=== PATIENT | male | born 1980 | race Caucasian/White ===

== ENCOUNTER 2017-01-28 14:40 | Inpatient (IN) | payer SELFPAY ==
[~2017-01-28] VITALS: Ht 177.8 cm; Wt 124.4 kg
[~2017-01-28 14:40] MED LIST: NAPROXEN500 MG PO
[2017-01-28 15:19] LABS: MCH 29.1 PG (29.0-34.0); MCHC 33.1 G/DL (30.0-36.0); MCV 88.1 FL (86-99); MEAN PLAT.VOLUME 9.9 uM^3 (9.0-12.4); PLATELET COUNT 319 K/uL (156-360); RBC DIS.WIDTH-CV 12.7 % (11.8-14.6); RBC DIS.WIDTH-SD 41.1 % (39-53); RED BLOOD COUNT 5.56 M/uL (4.00-5.50); WHITE BLOOD COUNT 17.3 K/uL (4.1-10.2)
[2017-01-28 15:30] LABS: CHLORIDE 93 mEq/L (99-109); POTASSIUM 4.1 mEq/L (3.7-5.4); SODIUM 134 mEq/L (136-147)
[2017-01-28 15:31] LABS: AMYLASE 31 IU/L (1-118)
[2017-01-28 15:33] LABS: GLUCOSE 362 mg/dL (70-99)
[2017-01-28 15:34] LABS: ANION GAP 15 MEQ/L (2-14)
[2017-01-28 15:35] LABS: TOTAL BILIRUBIN 0.6 mg/dL (0.0-1.0)
[2017-01-28 15:36] LABS: ALKALINE PHOSPHATASE 142 IU/L (3-129); GFR ESTIMATE (CALCULATED) > 59 mL/min/
[2017-01-28 15:38] LABS: DIRECT BILIRUBIN 0.3 mg/dL (0.0-0.3); UREA NITROGEN (BUN) 8 mg/dL (9-23)
[2017-01-28 15:40] LABS: LIPASE 3 U/L (1.0-51.0)
[2017-01-28 15:46] LABS: TROP-I INTERPRETATION NEGATIVE; TROPONIN-I < 0.01 ng/mL (0.0-0.30)
[2017-01-28 16:23] LABS: ADD MIUA? NO; BILIRUBIN NEGATIVE; BLOOD NEGATIVE; COLOR YELLOW ((YELLOW)); GLUCOSE (STRIP) >=500; KETONES 20; LEUKOCYTES NEGATIVE; NITRITE NEGATIVE; PROTEIN (STRIP) NEGATIVE; SPECIFIC GRAVITY 1.033 (1.000-1.030); UCUL ADDED? NO; UROBILINOGEN 0.2 MG/DL (0.2-1.0)
[2017-01-28] MEDS ORDERED: PRILOSEC OTC20 MG PO (19:09)
[2017-01-28 20:33] LABS: Estimated Average Glucose 295 mg/dL (70-123); HEMOGLOBIN A1c (GLYCOHEMOGLOB) 11.9 % HGB (Below 5.7)
[2017-01-28 21:41] VITALS: BP 150/109
[2017-01-28 23:44] VITALS: BP 143/74
[2017-01-29 00:22] LABS: POINT-OF-CARE METER ID UU14162508
[2017-01-29 03:46] VITALS: BP 164/84
[2017-01-29 05:39] LABS: POINT-OF-CARE METER ID UU14162508
[2017-01-29 07:55] VITALS: BP 139/75
[2017-01-29 11:40] LABS: POINT-OF-CARE METER ID UU13113675; POINT-OF-CARE USER ID 515036437
[2017-01-29 13:50] VITALS: BP 124/79
[2017-01-29 16:19] VITALS: BP 110/54
[2017-01-29 17:12] LABS: POINT-OF-CARE METER ID UU14208750
[2017-01-29 20:00] VITALS: BP 133/71
[2017-01-29 21:30] LABS: POINT-OF-CARE METER ID UU14162508
[2017-01-29 23:50] VITALS: BP 126/77
[2017-01-30 06:15] LABS: ANION GAP 6 MEQ/L (2-14); CHLORIDE 97 MEQ/L (99-109); GFR ESTIMATE (CALCULATED) > 59 mL/min/; GLUCOSE 224 mg/dL (70-99); POTASSIUM 4.2 MEQ/L (3.7-5.4); SAMPLE HEMOLYSIS CHECK 0; SAMPLE ICTERIC CHECK 0; SAMPLE LIPEMIA CHECK 0; SODIUM 135 MEQ/L (136-147); UREA NITROGEN (BUN) 7 mg/dL (9-23)
[2017-01-30 06:46] LABS: POINT-OF-CARE METER ID UU14208750
[2017-01-30 06:53] LABS: HEMATOCRIT 40.5 % (38.0-50.0); MCH 29.6 PG (29.0-34.0); MCHC 32.8 G/DL (30.0-36.0); MEAN PLAT.VOLUME 10.3 uM^3 (9.0-12.4); PLATELET COUNT 252 K/uL (156-360); RBC DIS.WIDTH-CV 13.2 % (11.8-14.6); RBC DIS.WIDTH-SD 43.4 % (39-53); WHITE BLOOD COUNT 14.2 K/uL (4.1-10.2)
[2017-01-30 06:55] VITALS: BP 117/73
[2017-01-30 12:30] LABS: POINT-OF-CARE METER ID UU14162508
[2017-01-30 15:17] LABS: POINT-OF-CARE METER ID UU14162508
[2017-01-30 16:00] VITALS: BP 126/73
[2017-01-30 16:17] VITALS: BP 126/73
[2017-01-30 19:36] VITALS: BP 136/80
[2017-01-30 21:46] LABS: POINT-OF-CARE METER ID UU14162508
[2017-01-30 23:22] VITALS: BP 128/74
[2017-01-31 03:31] VITALS: BP 140/86
[2017-01-31 06:36] LABS: POINT-OF-CARE METER ID UU14162508
[2017-01-31 07:30] VITALS: BP 161/93
[2017-01-31] MEDS ORDERED: METFORMIN HCL500 MG PO (10:53)
[2017-01-31] MEDS ORDERED: GLIPIZIDE5 MG PO (10:54)
[2017-01-31 12:20] LABS: POINT-OF-CARE METER ID UU14162508
== END 2017-01-31 12:59 | disposition home or self-care (01) | DRG 418 ==
LOC: EME 14:40 → EDOF 19:29 → 2EAST 19:29 → EDOF 19:29 → ENRESERV 19:31 → 2EAST 21:28
PROVIDERS: Nurse Practitioner Family; Surgery
PROC: 0FT44ZZ Resection of Gallbladder, Percutaneous Endoscopic Approach (ICD-10-PCS; principal; 2017-01-29)
DX: K80.00 Calculus of gallbladder with acute cholecystitis without obstruction (principal); F11.20 Opioid dependence, uncomplicated; E66.01 Morbid (severe) obesity due to excess calories; Z68.39 Body mass index [BMI] 39.0-39.9, adult; F17.210 Nicotine dependence, cigarettes, uncomplicated; Z91.19 Patient's noncompliance with other medical treatment and regimen; K21.9 Gastro-esophageal reflux disease without esophagitis; G89.29 Other chronic pain; E11.65 Type 2 diabetes mellitus with hyperglycemia
CPT/HCPCS: 71020; 74177; 76705; 80048; 80053; 81003; 82150; 82248; 82948; 83036; 83690; 84484; 85027; 87070; 87075; 87077; 87186; 87205; 88304; 93005; 94799; 99281; 99285; C1769; G0378; J0330; J0500; J1170; J1200; J1644; J1815; J1885; J2250; J2405; J2543; J2710; J3010; J7030; J7050; J7120; S0028